=== PATIENT | female | born 1965 | race Caucasian/White ===

== ENCOUNTER 2021-03-02 09:44 | Emergency (ER) | payer OTHER, MEDICAID ==
[~2021-03-02] VITALS: Ht 152.4 cm; Wt 63.5 kg
[2021-03-02] MEDS ORDERED: cefTRIAXone SOD 1,000 MG VL IM ONE (10:45)
[2021-03-02 10:47] VITALS: BP 155/99
== END 2021-03-02 12:26 | disposition home or self-care (01) ==
LOC: ER 09:44
DX: L03.115 Cellulitis of right lower limb (principal); N76.0 Acute vaginitis; N39.0 Urinary tract infection, site not specified; K21.9 Gastro-esophageal reflux disease without esophagitis; E78.5 Hyperlipidemia, unspecified; I10 Essential (primary) hypertension; Z90.710 Acquired absence of both cervix and uterus
CPT/HCPCS: 81002; 96372; 99283; J0696

== ENCOUNTER 2021-03-10 13:12 | Inpatient (IN) | payer OTHER, MEDICAID ==
[~2021-03-10] VITALS: Ht 152.4 cm; Wt 77.1 kg
[2021-03-10 14:40] LABS: Basophils # (auto) 0.1 10 ^3/uL (0-0.2); Eosinophils # (auto) 0.1 10 ^3/uL (0-0.8); Mean Corpuscular Hemoglobin 16.9 pg (28.0-32.0)
[2021-03-10 14:42] LABS: Basophils % (auto) 0.4 % (0.0-2.0); Eosinophils % (auto) 0.3 % (0.0-7.0); Hematocrit 38.3 % (36.0-46.0); Hemoglobin 10.8 g/dL (12.2-16.2); Lymphocytes # (auto) 2.2 10 ^3/uL (0.4-5.4); Lymphocytes % (auto) 13.1 % (10.0-50.0); Mean Corpuscular Hgb Conc. 28.3 g/dL (32.0-36.0); Mean Corpuscular Volume 59.7 fL (80.0-100.0); Monocytes # (auto) 1.5 10 ^3/uL (0-1.3); Monocytes % (auto) 8.6 % (0.0-12.0); Neutrophils % (auto) 77.6 % (37.0-80.0); Platelet Count (auto) 427 10^3/uL (140-450); Red Blood Cells 6.42 10^6/uL (4.0-5.20); White Blood Cell 16.8 10^3/uL (4.4-10.8)
[2021-03-10 14:44] LABS: Red Cell Distribution Width 20.6 % (11.8-14.3)
[2021-03-10 14:56] LABS: Albumin 1.8 g/dL (3.4-5.0); BUN/Creatinine Ratio 12.2; Calcium 7.8 mg/dL (8.5-10.1); Potassium 3.2 mmol/L (3.5-5.1)
[2021-03-10 15:02] LABS: Bilirubin, Total 0.8 mg/dL (0.2-1.0); Total Protein 5.9 g/dL (6.4-8.2)
[2021-03-10] MEDS ORDERED: MORPHINE SULF INJ 2 MG/ML SYRINGE 1ML IV PRN (16:30)
[2021-03-10] MEDS ORDERED: FUROSEMIDE 40 MG/4 ML VIAL IV SCH (16:30)
[2021-03-10] MEDS ORDERED: DEXTROSE (50%) 50ML SYRG IV ONE (16:30)
[2021-03-10] MEDS ORDERED: VANCOMYCIN PER PHARMACY 0 MG IV SCH (16:30)
[2021-03-10] MEDS ORDERED: NITROGLYCERIN 0.4 MG SL TAB SL PRN (16:30)
[2021-03-10] MEDS ORDERED: HYDROcodone-ACET 10/325MG TAB PO PRN (16:45)
[2021-03-10] MEDS ORDERED: hydrALAZINE HCL 20 MG/ML VL IV PRN (16:45)
[2021-03-10] MEDS ORDERED: ACCU-CHEK COMFORT CURVE STRIP VI ONE (17:00)
[2021-03-10] MEDS ORDERED: InsuLIN REG 1unit/0.01ml Soln (100units/ml) SC ONE (17:00)
[2021-03-10] MEDS ORDERED: PIPERACILLIN-TAZOB 3.375GM 100 ML IV ONE (17:30)
[2021-03-10 17:46] LABS: INR 1.13 (0.9-1.15)
[2021-03-10] MEDS ORDERED: VANCOMYCIN 1GM/250ML 250 ML IV ONE (18:30)
[2021-03-10 18:58] VITALS: BP 170/101
[2021-03-10] MEDS ORDERED: PIPERACILLIN-TAZOB 3.375GM 100 ML IV SCH (21:00)
[2021-03-11] MEDS ORDERED: VANCOMYCIN 1GM/250ML 250 ML IV SCH (06:00)
== END 2021-03-10 20:56 | disposition left against medical advice (07) | DRG 602 ==
LOC: ER 13:12 → TELE 17:12
PROVIDERS: ADMIT Internal Medicine; ATTEND Internal Medicine
DX: L03.115 Cellulitis of right lower limb (principal); J18.9 Pneumonia, unspecified organism; E87.1 Hypo-osmolality and hyponatremia; I11.0 Hypertensive heart disease with heart failure; L03.116 Cellulitis of left lower limb; D64.9 Anemia, unspecified; I50.9 Heart failure, unspecified; Z53.29 Procedure and treatment not carried out because of patient's decision for other reasons; E78.5 Hyperlipidemia, unspecified; E87.6 Hypokalemia; Z80.9 Family history of malignant neoplasm, unspecified; Z83.3 Family history of diabetes mellitus; Z90.710 Acquired absence of both cervix and uterus
CPT/HCPCS: 36415; 71046; 76604; 80053; 83036; 83880; 84484; 85025; 85610; 85652; 87040; 96365; 96367; 96375; G0378; J2543

== ENCOUNTER 2021-03-15 05:25 | Observation (INO) | payer OTHER, MEDICAID ==
[~2021-03-15] VITALS: Ht 152.4 cm; Wt 86.3 kg
[2021-03-15] MEDS ORDERED: FUROSEMIDE 40 MG/4 ML VIAL IV ONE (06:30)
[2021-03-15 07:39] LABS: Basophils # (auto) 0.1 10 ^3/uL (0-0.2); Eosinophils # (auto) 0.1 10 ^3/uL (0-0.8); Hemoglobin 11.4 g/dL (12.2-16.2); Lymphocytes # (auto) 1.5 10 ^3/uL (0.4-5.4); Monocytes % (auto) 8.2 % (0.0-12.0)
[2021-03-15 07:42] LABS: Basophils % (auto) 0.4 % (0.0-2.0); Eosinophils % (auto) 0.9 % (0.0-7.0); Lymphocytes % (auto) 11.1 % (10.0-50.0); Mean Corpuscular Hemoglobin 17.2 pg (28.0-32.0); Mean Corpuscular Hgb Conc. 28.6 g/dL (32.0-36.0); Mean Corpuscular Volume 60.3 fL (80.0-100.0); Monocytes # (auto) 1.1 10 ^3/uL (0-1.3); Neutrophils % (auto) 79.4 % (37.0-80.0); Nucleated Red Blood Cells % 0.1 %; Red Blood Cells 6.63 10^6/uL (4.0-5.20); White Blood Cell 13.9 10^3/uL (4.4-10.8)
[2021-03-15 07:54] LABS: Red Cell Distribution Width 21.2 % (11.8-14.3)
[2021-03-15 07:56] LABS: Albumin 2.1 g/dL (3.4-5.0); BUN/Creatinine Ratio 11.6; Calcium 8.1 mg/dL (8.5-10.1)
[2021-03-15 08:01] LABS: Bilirubin, Total 0.9 mg/dL (0.2-1.0); Total Protein 6.6 g/dL (6.4-8.2)
[2021-03-15 08:14] LABS: Urine Bacteria FEW /hpf (None Seen); Urine Blood TRACE /uL (Negative); Urine WBC 4 /hpf (0 - 5)
[2021-03-15] MEDS ORDERED: cloNIDine HCL 0.1 MG TAB PO ONE (10:15)
[2021-03-15] MEDS ORDERED: InsuLIN REG 1unit/0.01ml Soln (100units/ml) IV ONE (10:45)
[2021-03-15 11:17] LABS: INR 1.14 (0.9-1.15); Partial Thromboplastin Time 24.2 sec (23.0-31.2)
[2021-03-15] MEDS ORDERED: IOHEXOL 350 MG/ML 100ML IJ ONE (13:11)
[2021-03-15] MEDS ORDERED: ACETAMINOPHEN 325 MG TAB PO PRN (13:15)
[2021-03-15] MEDS: POTASSIUM CHL 20MEQ/100ML 100 ML IV SCH ×2 (13:15→17:30)
[2021-03-15] MEDS ORDERED: LORazepam 2MG/ML-1ML VIAL IM PRN (13:15)
[2021-03-15] MEDS ORDERED: VANCOMYCIN PER PHARMACY 0 MG IV SCH (13:15)
[2021-03-15] MEDS ORDERED: DEXTROSE (50%) 50ML SYRG IV PRN (13:15)
[2021-03-15] MEDS ORDERED: NITROGLYCERIN 0.4 MG SL TAB SL PRN (13:15)
[2021-03-15] MEDS ORDERED: MORPHINE SULF INJ 2 MG/ML SYRINGE 1ML IV PRN (13:15)
[2021-03-15] MEDS ORDERED: LORazepam 0.5 MG TAB PO PRN (13:15)
[2021-03-15] MEDS ORDERED: HYDROcodone-ACET 5/325MG TAB PO PRN (13:15)
[2021-03-15] MEDS: IPRATROPIUM BROM 0.5 MG/2.5ML INH SOL NEB SCH ×3 (14:26→21:30)
[2021-03-15] MEDS: ALBUTEROL SULF 2.5 MG/0.5ML(0.5%) NEB SOLN NEB SCH ×3 (14:26→21:30)
[2021-03-15] MEDS: AMPICILLIN & SULBACTAM SODIUM 3 GM in SODIUM CHL 0.9% 100 ML IV SCH ×2 (15:13→19:15)
[2021-03-15 15:18] VITALS: BP 160/94
[2021-03-15] MEDS: VANCOMYCIN 1GM/250ML 250 ML IV SCH (16:25)
[2021-03-15] MEDS: InsuLIN REG 1unit/0.01ml Soln (100units/ml) SC SCH ×2 (17:00→21:10)
[2021-03-15] MEDS: ACCU-CHEK COMFORT CURVE STRIP VI SCH ×2 (17:39→21:19)
[2021-03-15] MEDS: FUROSEMIDE 20 MG/2 ML VIAL IV SCH (18:44)
[2021-03-15] MEDS ORDERED: ALPRAZolam 0.5 MG TAB PO PRN (19:00)
[2021-03-15 19:02] VITALS: BP 150/99
[2021-03-15 21:55] VITALS: BP 147/88
[2021-03-16] MEDS: AMPICILLIN & SULBACTAM SODIUM 3 GM in SODIUM CHL 0.9% 100 ML IV SCH ×4 (01:15→20:11)
[2021-03-16] MEDS: ALBUTEROL SULF 2.5 MG/0.5ML(0.5%) NEB SOLN NEB SCH ×2 (01:30→05:30)
[2021-03-16] MEDS: IPRATROPIUM BROM 0.5 MG/2.5ML INH SOL NEB SCH ×2 (01:30→05:30)
[2021-03-16] MEDS: VANCOMYCIN 1GM/250ML 250 ML IV SCH ×2 (02:30→17:00)
[2021-03-16] MEDS ORDERED: PNEUMOCOCCAL VACC POLYS 25 MCG/0.5 ML VIAL IM ONE (04:00)
[2021-03-16 05:28] VITALS: BP 143/100
[2021-03-16] MEDS: FUROSEMIDE 20 MG/2 ML VIAL IV SCH ×2 (06:29→17:32)
[2021-03-16] MEDS: ACCU-CHEK COMFORT CURVE STRIP VI SCH ×4 (06:29→22:18)
[2021-03-16] MEDS: InsuLIN REG 1unit/0.01ml Soln (100units/ml) SC SCH ×4 (06:30→22:23)
[2021-03-16 07:42] LABS: Basophils # (auto) 0.1 10 ^3/uL (0-0.2); Eosinophils # (auto) 0.2 10 ^3/uL (0-0.8); Mean Corpuscular Hemoglobin 17.6 pg (28.0-32.0); Mean Corpuscular Hgb Conc. 29.3 g/dL (32.0-36.0); Nucleated Red Blood Cells % 0.1 %; Red Cell Distribution Width 20.9 % (11.8-14.3)
[2021-03-16 07:44] LABS: Basophils % (auto) 0.7 % (0.0-2.0); Eosinophils % (auto) 1.8 % (0.0-7.0); Hematocrit 38.9 % (36.0-46.0); Hemoglobin 11.4 g/dL (12.2-16.2); Lymphocytes # (auto) 1.9 10 ^3/uL (0.4-5.4); Lymphocytes % (auto) 14.2 % (10.0-50.0); Mean Corpuscular Volume 60.2 fL (80.0-100.0); Monocytes % (auto) 7.6 % (0.0-12.0); Neutrophils # (auto) 10.1 10 ^3/uL (1.6-8.6); Neutrophils % (auto) 75.7 % (37.0-80.0); Red Blood Cells 6.47 10^6/uL (4.0-5.20); White Blood Cell 13.3 10^3/uL (4.4-10.8)
[2021-03-16 08:02] LABS: Albumin 1.9 g/dL (3.4-5.0); Calcium 7.7 mg/dL (8.5-10.1); Potassium 3.8 mmol/L (3.5-5.1)
[2021-03-16 08:05] LABS: BUN/Creatinine Ratio 13.9; Bilirubin, Total 0.9 mg/dL (0.2-1.0); Total Protein 6.3 g/dL (6.4-8.2)
[2021-03-16 09:00] VITALS: BP 148/96
[2021-03-16] MEDS ORDERED: POTASSIUM CHL 20 Meq TABLET PO SCH (10:00)
[2021-03-16] MEDS ORDERED: IPRATROPIUM BROM 0.5 MG/2.5ML INH SOL NEB PRN (10:00)
[2021-03-16] MEDS ORDERED: ALBUTEROL SULF 2.5 MG/0.5ML(0.5%) NEB SOLN NEB PRN (10:45)
[2021-03-16 13:00] VITALS: BP 153/99
[2021-03-16 17:00] VITALS: BP 163/105
[2021-03-16] MEDS ORDERED: guaiFENesin 200 MG/10 ML UD PO PRN (17:15)
[2021-03-16 22:00] VITALS: BP 148/90
[2021-03-17] MEDS: AMPICILLIN & SULBACTAM SODIUM 3 GM in SODIUM CHL 0.9% 100 ML IV SCH (01:50)
[2021-03-17 02:25] LABS: Basophils # (auto) 0.1 10 ^3/uL (0-0.2); Basophils % (auto) 0.7 % (0.0-2.0); Eosinophils # (auto) 0.2 10 ^3/uL (0-0.8); Eosinophils % (auto) 1.8 % (0.0-7.0); Hematocrit 37.8 % (36.0-46.0); Hemoglobin 11.2 g/dL (12.2-16.2); Lymphocytes # (auto) 1.6 10 ^3/uL (0.4-5.4); Lymphocytes % (auto) 13.6 % (10.0-50.0); Mean Corpuscular Hemoglobin 17.6 pg (28.0-32.0); Mean Corpuscular Hgb Conc. 29.7 g/dL (32.0-36.0); Mean Corpuscular Volume 59.4 fL (80.0-100.0); Monocytes # (auto) 0.9 10 ^3/uL (0-1.3); Monocytes % (auto) 7.6 % (0.0-12.0); Neutrophils % (auto) 76.3 % (37.0-80.0); Red Blood Cells 6.38 10^6/uL (4.0-5.20); White Blood Cell 11.9 10^3/uL (4.4-10.8)
[2021-03-17 02:26] LABS: Red Cell Distribution Width 20.4 % (11.8-14.3)
[2021-03-17 02:51] LABS: Albumin 1.6 g/dL (3.4-5.0); BUN/Creatinine Ratio 17.7; Calcium 7.3 mg/dL (8.5-10.1)
[2021-03-17 02:53] LABS: Bilirubin, Total 0.7 mg/dL (0.2-1.0); Total Protein 5.5 g/dL (6.4-8.2)
[2021-03-17 02:55] LABS: Potassium 2.7 mmol/L (3.5-5.1)
[2021-03-17] MEDS ORDERED: POTASSIUM CHL 20 Meq TABLET PO ONE (03:15)
[2021-03-17] MEDS: VANCOMYCIN 1GM/250ML 250 ML IV SCH (03:15)
[2021-03-17] MEDS ORDERED: POTASSIUM CHLORIDE 40 MEQ in D5W 5% 1,000 ML IV SCH (03:15)
[2021-03-17] MEDS ORDERED: POTASSIUM CHL 20MEQ/100ML 100 ML IV ONE (03:30)
[2021-03-17 05:00] VITALS: BP 152/88
[2021-03-17] MEDS: InsuLIN REG 1unit/0.01ml Soln (100units/ml) SC SCH (06:04)
[2021-03-17] MEDS: ACCU-CHEK COMFORT CURVE STRIP VI SCH (06:13)
[2021-03-17] MEDS: FUROSEMIDE 20 MG/2 ML VIAL IV SCH (06:14)
[2021-03-17] MEDS ORDERED: metOLazone 5 MG TAB PO ONE (07:45)
[2021-03-17 08:00] VITALS: BP 146/87
[2021-03-17 09:00] VITALS: BP 146/87
[2021-03-17] MEDS ORDERED: SACUBITRIL-VALSARTAN 24mg/26mg TAB PO SCH (10:00)
[2021-03-17] MEDS ORDERED: CARVEDILOL 3.125 MG TAB PO SCH (10:00)
== END 2021-03-17 08:40 | disposition left against medical advice (07) ==
LOC: ER 05:25 → TELE 13:07 → TELE-WESTW 18:30
PROVIDERS: ADMIT Hospitalist; ATTEND Hospitalist
DX: J96.01 Acute respiratory failure with hypoxia (principal); Z20.822 Contact with and (suspected) exposure to COVID-19; I11.0 Hypertensive heart disease with heart failure; I50.43 Acute on chronic combined systolic (congestive) and diastolic (congestive) heart failure; E87.6 Hypokalemia; L03.115 Cellulitis of right lower limb; F41.9 Anxiety disorder, unspecified; E11.65 Type 2 diabetes mellitus with hyperglycemia; J90 Pleural effusion, not elsewhere classified; E66.9 Obesity, unspecified; K21.9 Gastro-esophageal reflux disease without esophagitis; E78.00 Pure hypercholesterolemia, unspecified; F32.9 Major depressive disorder, single episode, unspecified; R60.1 Generalized edema; D84.9 Immunodeficiency, unspecified; E66.01 Morbid (severe) obesity due to excess calories; E78.5 Hyperlipidemia, unspecified; J45.909 Unspecified asthma, uncomplicated; J91.8 Pleural effusion in other conditions classified elsewhere; L02.415 Cutaneous abscess of right lower limb; Z90.710 Acquired absence of both cervix and uterus; Z68.37 Body mass index [BMI] 37.0-37.9, adult; Z98.891 History of uterine scar from previous surgery; Z91.14 Patient's other noncompliance with medication regimen; Z79.899 Other long term (current) drug therapy
CPT/HCPCS: 32555; 36415; 71045; 71275; 80053; 80202; 81001; 82962; 83880; 83986; 84484; 85025; 85610; 85730; 87081; 87205; 87426; 87493; 88104; 88305; 88342; 89051; 93005; 93306; 93970; 94640; 96365; 96366; 96367; 96375; 96376; 99285; G0378; J1815; J1940; J3370; J3480; J7644; Q9967

== ENCOUNTER 2021-05-30 09:05 | Emergency (ER) | payer OTHER, MEDICAID ==
[~2021-05-30] VITALS: Ht 149.9 cm; Wt 66.7 kg
[2021-05-30] MEDS ORDERED: HYDROcodone-ACET 5/325MG TAB ONE (10:32)
[2021-05-30] MEDS ORDERED: SILVER SULFADIAZINE 1 % TOPICAL CREAM 50GM TOP ONE (10:45)
[2021-05-30] MEDS ORDERED: cefTRIAXone 1GM/50ML D5W 50 ML IV ONE (10:45)
[2021-05-30] MEDS ORDERED: SODIUM CHLORIDE 0.9% 1,000 ML IV ONE (10:45)
[2021-05-30] MEDS ORDERED: SODIUM CHLORIDE 0.9% 500 ML IV ONE (10:45)
[2021-05-30 11:19] LABS: Basophils # (auto) 0.1 10 ^3/uL (0-0.2); Eosinophils # (auto) 0.1 10 ^3/uL (0-0.8); Mean Corpuscular Hgb Conc. 29.1 g/dL (32.0-36.0); Nucleated Red Blood Cells % 0.1 %
[2021-05-30 11:21] LABS: Basophils % (auto) 0.8 % (0.0-2.0); Eosinophils % (auto) 0.6 % (0.0-7.0); Hematocrit 38.3 % (36.0-46.0); Hemoglobin 11.1 g/dL (12.2-16.2); Lymphocytes # (auto) 1.6 10 ^3/uL (0.4-5.4); Lymphocytes % (auto) 9.2 % (10.0-50.0); Mean Corpuscular Hemoglobin 19.2 pg (28.0-32.0); Mean Corpuscular Volume 66.1 fL (80.0-100.0); Monocytes # (auto) 1.3 10 ^3/uL (0-1.3); Monocytes % (auto) 7.5 % (0.0-12.0); Neutrophils % (auto) 81.9 % (37.0-80.0); Red Blood Cells 5.79 10^6/uL (4.0-5.20); White Blood Cell 17.1 10^3/uL (4.4-10.8)
[2021-05-30 11:36] LABS: INR 1.02 (0.9-1.15); Partial Thromboplastin Time 23.4 sec (23.6-33.0)
[2021-05-30 11:37] LABS: Albumin 2.1 g/dL (3.4-5.0); Anion Gap 8 (5-15); Blood Urea Nitrogen 15 mg/dL (7-18); Calcium 8.9 mg/dL (8.5-10.1); Carbon Dioxide 29 mmol/L (21-32); Chloride 90 mmol/L (98-107); Magnesium 2.2 mg/dL (1.6-2.6); Potassium 4.5 mmol/L (3.5-5.1); Sodium 127 mmol/L (136-145)
[2021-05-30 11:47] LABS: Alanine Aminotransferase 15 U/L (13-56); Alkaline Phosphatase 286 U/L (45-117); Aspartate Aminotransferase 14 U/L (15-37); BUN/Creatinine Ratio 21.7; Bilirubin, Total 0.4 mg/dL (0.2-1.0); GFR African American 113 mL/min; GFR Non-African American 93 mL/min; Total Protein 7.4 g/dL (6.4-8.2)
[2021-05-30 11:50] LABS: Glucose 407 mg/dL (74-106)
[2021-05-30 14:01] LABS: Urine Bacteria NONE SEEN /hpf (None Seen); Urine Blood Negative /uL (Negative); Urine Specific Gravity 1.038 (1.001-1.035); Urine WBC 22 /hpf (0 - 5)
[2021-05-30 15:26] VITALS: BP 159/60
[2021-05-30] MEDS ORDERED: SPIRONOLACTONE 25 MG TAB PO ONE (15:45)
[2021-05-30] MEDS ORDERED: InsuLIN REG 1unit/0.01ml Soln (100units/ml) IV ONE ×2 (15:45→17:30)
[2021-05-30] MEDS ORDERED: FUROSEMIDE 40 MG/4 ML VIAL IV ONE (15:45)
[2021-05-30] MEDS ORDERED: cefTRIAXone SOD 1,000 MG VL IM ONE (17:30)
[2021-05-30] MEDS ORDERED: HYDROcodone-ACET 5/325MG TAB PO ONE (17:30)
[2021-05-30] MEDS ORDERED: InsuLIN REG 1unit/0.01ml Soln (100units/ml) SC ONE (17:45)
== END 2021-05-30 18:38 | disposition home or self-care (01) ==
LOC: EDBD 09:05 → ER 09:05
DX: L03.115 Cellulitis of right lower limb (principal); L03.116 Cellulitis of left lower limb; N39.0 Urinary tract infection, site not specified; I87.2 Venous insufficiency (chronic) (peripheral); I11.0 Hypertensive heart disease with heart failure; I50.9 Heart failure, unspecified; E11.65 Type 2 diabetes mellitus with hyperglycemia; E43 Unspecified severe protein-calorie malnutrition; Z68.29 Body mass index [BMI] 29.0-29.9, adult; R60.9 Edema, unspecified; K21.9 Gastro-esophageal reflux disease without esophagitis; E78.5 Hyperlipidemia, unspecified; Z90.710 Acquired absence of both cervix and uterus; Z20.822 Contact with and (suspected) exposure to COVID-19
CPT/HCPCS: 36415; 71046; 80053; 81001; 82962; 83735; 83880; 84484; 85025; 85379; 85610; 85730; 87426; 93005; 93970; 96372; 99285; J0696; J1815

== ENCOUNTER 2021-06-02 22:11 | Emergency (ER) | payer OTHER, MEDICAID ==
[~2021-06-02] VITALS: Ht 149.9 cm; Wt 68.0 kg
[2021-06-03] MEDS ORDERED: ONDANSETRON HCL 4 MG/2 ML VIAL IV ONE (00:30)
[2021-06-03] MEDS ORDERED: MORPHINE SULFATE 4 MG/ML SYR/VIAL IV ONE (00:30)
[2021-06-03 00:43] LABS: Albumin 1.9 g/dL (3.4-5.0); Anion Gap 7 (5-15); Blood Urea Nitrogen 12 mg/dL (7-18); Calcium 8.7 mg/dL (8.5-10.1); Carbon Dioxide 31 mmol/L (21-32); Chloride 89 mmol/L (98-107); Magnesium 1.7 mg/dL (1.6-2.6); Sodium 127 mmol/L (136-145)
[2021-06-03] MEDS ORDERED: cefTRIAXone 1GM/50ML D5W 50 ML IV ONE (00:45)
[2021-06-03] MEDS ORDERED: VANCOMYCIN 1GM/250ML 250 ML IV ONE (00:45)
[2021-06-03 00:46] LABS: Alanine Aminotransferase 16 U/L (13-56); Aspartate Aminotransferase 11 U/L (15-37); BUN/Creatinine Ratio 16.4; GFR African American 106 mL/min; GFR Non-African American 87 mL/min
[2021-06-03 00:47] LABS: Lactic Acid w/Reflex 2.2 mmol/L (0.4-2.0)
[2021-06-03 00:50] LABS: Urine Bacteria NONE SEEN /hpf (None Seen); Urine Blood Negative /uL (Negative); Urine Specific Gravity 1.035 (1.001-1.035); Urine WBC 5 /hpf (0 - 5)
[2021-06-03 01:08] LABS: Basophils # (auto) 0.1 10 ^3/uL (0-0.2); Basophils % (auto) 0.5 % (0.0-2.0); Eosinophils # (auto) 0.1 10 ^3/uL (0-0.8); Eosinophils % (auto) 0.8 % (0.0-7.0); Glucose 459 mg/dL (74-106); Hematocrit 36.4 % (36.0-46.0); Lymphocytes # (auto) 2.1 10 ^3/uL (0.4-5.4); Lymphocytes % (auto) 14.8 % (10.0-50.0); Mean Corpuscular Hemoglobin 19.7 pg (28.0-32.0); Mean Corpuscular Hgb Conc. 30.1 g/dL (32.0-36.0); Mean Corpuscular Volume 65.4 fL (80.0-100.0); Monocytes # (auto) 1.2 10 ^3/uL (0-1.3); Monocytes % (auto) 8.4 % (0.0-12.0); Neutrophils # (auto) 10.7 10 ^3/uL (1.6-8.6); Neutrophils % (auto) 75.5 % (37.0-80.0); Nucleated Red Blood Cells % 0.2 %; Red Blood Cells 5.56 10^6/uL (4.0-5.20); Red Cell Distribution Width 21.9 % (11.8-14.3); White Blood Cell 14.1 10^3/uL (4.4-10.8)
[2021-06-03 01:22] LABS: Alkaline Phosphatase 227 U/L (45-117); Bilirubin, Total 0.3 mg/dL (0.2-1.0); Total Protein 6.9 g/dL (6.4-8.2)
[2021-06-03] MEDS ORDERED: SODIUM CHLORIDE 0.9% 500 ML IV ONE (02:30)
[2021-06-03] MEDS ORDERED: SODIUM CHLORIDE 0.9% 1,000 ML IV ONE (02:30)
[2021-06-03] MEDS ORDERED: metFORMIN HYDROCHLORIDE 500 MG TAB PO ONE (02:30)
[2021-06-03] MEDS ORDERED: BUPR150T18 PO (03:25)
[2021-06-03] MEDS ORDERED: CEFD300C2 PO (03:25)
[2021-06-03] MEDS ORDERED: CLON0.5T10 PO (03:25)
[2021-06-03] MEDS ORDERED: SPIR25TA8 PO (03:25)
[2021-06-03] MEDS ORDERED: GLIM-5 PO (03:25)
[2021-06-03 06:52] VITALS: BP 122/102
[2021-06-03] MEDS ORDERED: MORPHINE SULFATE INJECTION 2 MG/ML SYRG IV PRN (07:15)
[2021-06-03] MEDS ORDERED: ONDANSETRON HCL 4 MG/2 ML VIAL IV PRN (07:15)
[2021-06-03] MEDS ORDERED: HYDROcodone-ACET 5/325MG TAB PO PRN (07:15)
[2021-06-03] MEDS ORDERED: VANCOMYCIN PER PHARMACY 0 MG IV SCH (07:15)
[2021-06-03] MEDS ORDERED: NITROGLYCERIN 0.4 MG SL TAB SL PRN (07:15)
[2021-06-03] MEDS ORDERED: DEXTROSE (50%) 50ML SYRG IV PRN (07:15)
[2021-06-03] MEDS ORDERED: LISINOPRIL 5 MG TAB PO SCH (10:00)
[2021-06-03] MEDS ORDERED: ENOXAPARIN SOD 40 MG/0.4 ML SYRINGE SC SCH (10:00)
[2021-06-03] MEDS ORDERED: INSULIN LANTUS (GLARGINE) 1 /0.01ml (100units/ml) SC SCH (10:00)
[2021-06-03] MEDS ORDERED: InsuLIN REG 1unit/0.01ml Soln (100units/ml) SC SCH ×2 (11:30→22:00)
[2021-06-03] MEDS ORDERED: ACCU-CHEK COMFORT CURVE STRIP VI SCH (11:30)
[2021-06-03] MEDS ORDERED: PIPERACILLIN-TAZOB 3.375GM 100 ML IV SCH (12:00)
[2021-06-03] MEDS ORDERED: VANCOMYCIN 1GM/250ML 250 ML IV SCH (17:00)
== END 2021-06-03 07:52 | disposition left against medical advice (07) ==
LOC: EDBD 22:11 → ER 22:13 → UNDOADMIN 06-03 07:05 → TELE 06-03 07:05 → UNDODISIN 06-03 07:52
DX: L03.115 Cellulitis of right lower limb (principal); L97.919 Non-pressure chronic ulcer of unspecified part of right lower leg with unspecified severity; L97.929 Non-pressure chronic ulcer of unspecified part of left lower leg with unspecified severity; L03.116 Cellulitis of left lower limb; K21.9 Gastro-esophageal reflux disease without esophagitis; I11.0 Hypertensive heart disease with heart failure; I50.9 Heart failure, unspecified; E11.65 Type 2 diabetes mellitus with hyperglycemia; E78.5 Hyperlipidemia, unspecified; Z20.822 Contact with and (suspected) exposure to COVID-19; Z90.710 Acquired absence of both cervix and uterus; Z79.899 Other long term (current) drug therapy
CPT/HCPCS: 36415; 71045; 73590; 73700; 80053; 81001; 82010; 83605; 83735; 83880; 84484; 85025; 85652; 86141; 87040; 87077; 87186; 87205; 87426; 93925; 96365; 96366; 96368; 96375; 99285; J0696; J2270; J2405; J3370; J7030; 93005; 96367; G0378

== ENCOUNTER 2022-12-25 14:19 | Inpatient (IN) | payer OTHER, MEDICAID ==
[~2022-12-25] VITALS: Ht 160 cm; Wt 76.1 kg
[~2022-12-25 14:19] MED LIST: BUPR150T18 PO; CEFD300C2 PO; CLON0.5T10 PO; GLIM-5 PO; SPIR25TA8 PO
[2022-12-25 15:57] LABS: Basophils # (auto) 0.1 10 ^3/uL (0-0.2); Eosinophils # (auto) 0.2 10 ^3/uL (0-0.8); Hemoglobin 7.4 g/dL (12.2-16.2); Monocytes # (auto) 0.9 10 ^3/uL (0-1.3); Nucleated Red Blood Cells % 0.1 %
[2022-12-25 15:59] LABS: Hematocrit 25.7 % (36.0-46.0); Lymphocytes # (auto) 1.3 10 ^3/uL (0.4-5.4); Lymphocytes % (auto) 15.1 % (10.0-50.0); Mean Corpuscular Hemoglobin 18.5 pg (28.0-32.0); Mean Corpuscular Hgb Conc. 28.9 g/dL (32.0-36.0); Monocytes % (auto) 10.2 % (0.0-12.0); Neutrophils # (auto) 6.2 10 ^3/uL (1.6-8.6); Neutrophils % (auto) 71.7 % (37.0-80.0); Red Blood Cells 4.01 10^6/uL (4.0-5.20); Red Cell Distribution Width 17.7 % (11.8-14.3); White Blood Cell 8.6 10^3/uL (4.4-10.8)
[2022-12-25 16:06] LABS: Albumin 2.7 g/dL (3.4-5.0); BUN/Creatinine Ratio 15.9; Calcium 8.5 mg/dL (8.5-10.1); Potassium 4.1 mmol/L (3.5-5.1)
[2022-12-25 16:08] LABS: Lactic Acid w/Reflex 2.3 mmol/L (0.4-2.0)
[2022-12-25 16:09] LABS: Bilirubin, Total 0.2 mg/dL (0.2-1.0); Total Protein 6.9 g/dL (6.4-8.2)
[2022-12-25] MEDS ORDERED: MORPHINE SULFATE INJ 2 MG/ml SYRG IV ONE (16:30)
[2022-12-25] MEDS ORDERED: ONDANSETRON HCL 4 MG/2 ML VIAL IM ONE (16:30)
[2022-12-25] MEDS ORDERED: VANCOMYCIN PER PHARMACY 0 MG IV SCH (16:30)
[2022-12-25] MEDS ORDERED: VANCOMYCIN 1GM/250ML 250 ML IV ONE (17:15)
[2022-12-25] MEDS ORDERED: DEXTROSE (50%) 50ML SYRG IV PRN (22:30)
[2022-12-25] MEDS ORDERED: ACETAMINOPHEN 325 MG TAB PO PRN (22:30)
[2022-12-25] MEDS ORDERED: NITROGLYCERIN 0.4 MG SL TAB SL PRN (22:30)
[2022-12-25] MEDS ORDERED: DOCUSATE SOD 100 MG CAP PO PRN (22:30)
[2022-12-25] MEDS: HYDROmorphone HCL 2 MG/ML VL/or syr IV PRN (22:55)
[2022-12-25] MEDS: SODIUM CHLORIDE 0.9% 1,000 ML IV SCH (23:00)
[2022-12-25] MEDS: PIPERACILLIN-TAZOB 3.375GM 100 ML IV SCH (23:07)
[2022-12-25] MEDS: ACCU-CHEK COMFORT CURVE STRIP VI SCH (23:54)
[2022-12-25] MEDS: InsuLIN REG 1unit/0.01ml Soln (100units/ml) SC SCH (23:54)
[2022-12-26] MEDS: PIPERACILLIN-TAZOB 3.375GM 100 ML IV SCH ×3 (03:53→23:31)
[2022-12-26] MEDS: HYDROmorphone HCL 2 MG/ML VL/or syr IV PRN ×3 (03:54→17:33)
[2022-12-26 06:11] LABS: Basophils # (auto) 0.1 10 ^3/uL (0-0.2); Eosinophils # (auto) 0.2 10 ^3/uL (0-0.8); Hemoglobin 7.5 g/dL (12.2-16.2); Lymphocytes # (auto) 1.4 10 ^3/uL (0.4-5.4); Monocytes # (auto) 1.2 10 ^3/uL (0-1.3)
[2022-12-26 06:13] LABS: Basophils % (auto) 0.7 % (0.0-2.0); Eosinophils % (auto) 1.9 % (0.0-7.0); Hematocrit 27.2 % (36.0-46.0); Mean Corpuscular Hemoglobin 18.2 pg (28.0-32.0); Mean Corpuscular Hgb Conc. 27.8 g/dL (32.0-36.0); Mean Corpuscular Volume 65.4 fL (80.0-100.0); Monocytes % (auto) 10.5 % (0.0-12.0); Neutrophils # (auto) 8.6 10 ^3/uL (1.6-8.6); Neutrophils % (auto) 74.9 % (37.0-80.0); Nucleated Red Blood Cells % 0.2 %; Red Blood Cells 4.15 10^6/uL (4.0-5.20); Red Cell Distribution Width 17.2 % (11.8-14.3); White Blood Cell 11.5 10^3/uL (4.4-10.8)
[2022-12-26 06:17] LABS: Albumin 2.7 g/dL (3.4-5.0); Calcium 8.6 mg/dL (8.5-10.1); Potassium 4.6 mmol/L (3.5-5.1)
[2022-12-26 06:20] LABS: Bilirubin, Total 0.4 mg/dL (0.2-1.0)
[2022-12-26] MEDS: InsuLIN REG 1unit/0.01ml Soln (100units/ml) SC SCH ×4 (06:23→23:40)
[2022-12-26] MEDS: ACCU-CHEK COMFORT CURVE STRIP VI SCH ×4 (06:23→23:32)
[2022-12-26 07:16] LABS: Urine WBC None Seen /hpf (0 - 5)
[2022-12-26 08:33] LABS: Urine Bacteria NONE SEEN /hpf (None Seen); Urine Blood 1+ /uL (Negative); Urine Hyaline Cast FEW /lpf (0 - 2); Urine Specific Gravity 1.022 (1.001-1.035)
[2022-12-26] MEDS: ENOXAPARIN SOD 40 MG/0.4 ML SYRINGE SC SCH (10:48)
[2022-12-26] MEDS: FAMOTIDINE (10MG/ML) 2ML VL IV SCH (10:48)
[2022-12-26] MEDS: ONDANSETRON HCL 4 MG/2 ML VIAL IV PRN ×3 (10:50→23:52)
[2022-12-26] MEDS: VANCOMYCIN 1GM/250ML 250 ML IV SCH (11:41)
[2022-12-26] MEDS ORDERED: ALPRAZolam 0.25 MG TAB PO PRN (11:45)
[2022-12-26 15:05] VITALS: BP 117/43
[2022-12-26] MEDS ORDERED: GABA300C10 PO (16:40)
[2022-12-26 17:05] VITALS: BP 125/61
[2022-12-26] MEDS: SODIUM CHLORIDE 0.9% 1,000 ML IV SCH (17:44)
[2022-12-26 20:00] VITALS: BP 123/47
[2022-12-26 22:00] VITALS: BP 123/47
[2022-12-26] MEDS: HYDROcodone-ACET 5/325MG TAB PO PRN (23:14)
[2022-12-27] MEDS: HYDROmorphone HCL 2 MG/ML VL/or syr IV PRN (02:58)
[2022-12-27] MEDS: VANCOMYCIN 1GM/250ML 250 ML IV SCH (04:52)
[2022-12-27 05:00] VITALS: BP 111/53
[2022-12-27] MEDS: ACCU-CHEK COMFORT CURVE STRIP VI SCH ×3 (05:32→18:10)
[2022-12-27] MEDS: InsuLIN REG 1unit/0.01ml Soln (100units/ml) SC SCH ×4 (05:34→22:26)
[2022-12-27] MEDS: PIPERACILLIN-TAZOB 3.375GM 100 ML IV SCH ×3 (05:37→18:23)
[2022-12-27] MEDS ORDERED: PANT1INJ3 IV (06:59)
[2022-12-27] MEDS ORDERED: ESCI-34 PO (06:59)
[2022-12-27 07:42] LABS: Basophils # (auto) 0.1 10 ^3/uL (0-0.2); Lymphocytes # (auto) 1.6 10 ^3/uL (0.4-5.4); Monocytes # (auto) 1.3 10 ^3/uL (0-1.3)
[2022-12-27 07:44] LABS: Basophils % (auto) 0.8 % (0.0-2.0); Eosinophils # (auto) 0.1 10 ^3/uL (0-0.8); Eosinophils % (auto) 0.5 % (0.0-7.0); Hemoglobin 7.2 g/dL (12.2-16.2); Mean Corpuscular Hemoglobin 18.6 pg (28.0-32.0); Mean Corpuscular Hgb Conc. 28.8 g/dL (32.0-36.0); Mean Corpuscular Volume 64.8 fL (80.0-100.0); Monocytes % (auto) 11.8 % (0.0-12.0); Neutrophils # (auto) 8.3 10 ^3/uL (1.6-8.6); Neutrophils % (auto) 72.9 % (37.0-80.0); Nucleated Red Blood Cells % 0.2 %; Red Blood Cells 3.87 10^6/uL (4.0-5.20); Red Cell Distribution Width 17.5 % (11.8-14.3); White Blood Cell 11.3 10^3/uL (4.4-10.8)
[2022-12-27] MEDS: SODIUM CHLORIDE 0.9% 1,000 ML IV SCH (07:50)
[2022-12-27 08:50] VITALS: BP 141/46
[2022-12-27 09:00] LABS: Calcium 8.6 mg/dL (8.5-10.1); Potassium 4.9 mmol/L (3.5-5.1)
[2022-12-27 09:03] LABS: BUN/Creatinine Ratio 13.7
[2022-12-27] MEDS: FAMOTIDINE (10MG/ML) 2ML VL IV SCH (10:00)
[2022-12-27] MEDS: ENOXAPARIN SOD 40 MG/0.4 ML SYRINGE SC SCH (10:00)
[2022-12-27 12:56] LABS: Magnesium 2.1 mg/dL (1.6-2.6)
[2022-12-27 13:00] VITALS: BP 161/62
[2022-12-27 13:21] LABS: % Iron Saturation 3.2 % (15-50)
[2022-12-27] MEDS: ONDANSETRON HCL 4 MG/2 ML VIAL IV PRN (14:36)
[2022-12-27] MEDS: HYDROcodone-ACET 5/325MG TAB PO PRN ×2 (14:58→21:51)
[2022-12-27 17:06] VITALS: BP 171/54
[2022-12-28] MEDS: ACCU-CHEK COMFORT CURVE STRIP VI SCH ×5 (00:25→23:28)
[2022-12-28] MEDS: PIPERACILLIN-TAZOB 3.375GM 100 ML IV SCH ×4 (00:28→07:11)
[2022-12-28 02:13] VITALS: BP 150/76
[2022-12-28] MEDS: HYDROcodone-ACET 5/325MG TAB PO PRN ×4 (03:29→23:41)
[2022-12-28 05:24] LABS: Basophils # (auto) 0.1 10 ^3/uL (0-0.2); Eosinophils # (auto) 0.3 10 ^3/uL (0-0.8); Hemoglobin 7.2 g/dL (12.2-16.2); Mean Corpuscular Hemoglobin 18.3 pg (28.0-32.0); Mean Corpuscular Volume 62.8 fL (80.0-100.0); Monocytes # (auto) 1.3 10 ^3/uL (0-1.3); Nucleated Red Blood Cells % 0.1 %
[2022-12-28 05:26] LABS: Basophils % (auto) 0.9 % (0.0-2.0); Eosinophils % (auto) 2.3 % (0.0-7.0); Hematocrit 24.7 % (36.0-46.0); Lymphocytes % (auto) 17.1 % (10.0-50.0); Mean Corpuscular Hgb Conc. 29.1 g/dL (32.0-36.0); Monocytes % (auto) 10.8 % (0.0-12.0); Neutrophils # (auto) 8.2 10 ^3/uL (1.6-8.6); Neutrophils % (auto) 68.9 % (37.0-80.0); Red Blood Cells 3.93 10^6/uL (4.0-5.20); Red Cell Distribution Width 17.5 % (11.8-14.3); White Blood Cell 11.9 10^3/uL (4.4-10.8)
[2022-12-28 05:29] VITALS: BP 105/45
[2022-12-28] MEDS: InsuLIN REG 1unit/0.01ml Soln (100units/ml) SC SCH ×4 (05:34→23:29)
[2022-12-28 05:49] LABS: BUN/Creatinine Ratio 12.7 (10.0-20.0); Calcium 8.7 mg/dL (8.5-10.1); Potassium 4.4 mmol/L (3.5-5.1)
[2022-12-28 08:29] VITALS: BP 151/74
[2022-12-28] MEDS: ENOXAPARIN SOD 40 MG/0.4 ML SYRINGE SC SCH (10:44)
[2022-12-28] MEDS: FAMOTIDINE (10MG/ML) 2ML VL IV SCH (12:17)
[2022-12-28 13:00] VITALS: BP 146/82
[2022-12-28] MEDS ORDERED: PIPERACILLIN-TAZOB 3.375GM 100 ML IV SCH (14:00)
[2022-12-28 16:09] LABS: INR 1.1 (0.9-1.15); Partial Thromboplastin Time 27.1 sec (24.6-33.4)
[2022-12-28] MEDS: HYDROmorphone HCL 2 MG/ML VL/or syr IV PRN (17:51)
[2022-12-28] MEDS: FERROUS SULFATE 325mg EC TAB PO SCH (18:51)
[2022-12-28 22:00] VITALS: BP 123/58
[2022-12-29] VITALS (7 sets, daily range): BP systolic 126–161; BP diastolic 53–77
[2022-12-29] MEDS: HYDROmorphone HCL 2 MG/ML VL/or syr IV PRN (00:40)
[2022-12-29 00:56] LABS: Urine Bacteria FEW /hpf (None Seen); Urine Blood Negative /uL (Negative); Urine WBC 4 /hpf (0 - 5)
[2022-12-29 01:04] LABS: Protein, Urine 27.3 mg/dL (0.0-11.9)
[2022-12-29] MEDS: HYDROcodone-ACET 5/325MG TAB PO PRN ×3 (04:42→21:05)
[2022-12-29] MEDS: ACCU-CHEK COMFORT CURVE STRIP VI SCH ×4 (05:05→23:34)
[2022-12-29] MEDS: InsuLIN REG 1unit/0.01ml Soln (100units/ml) SC SCH ×4 (05:08→23:34)
[2022-12-29] MEDS: ONDANSETRON HCL 4 MG/2 ML VIAL IV PRN ×3 (06:04→23:50)
[2022-12-29 07:06] LABS: Calcium 8.6 mg/dL (8.5-10.1); Potassium 5.1 mmol/L (3.5-5.1)
[2022-12-29 07:09] LABS: BUN/Creatinine Ratio 15.2 (10.0-20.0)
[2022-12-29] MEDS: FERROUS SULFATE 325mg EC TAB PO SCH ×3 (08:34→18:05)
[2022-12-29] MEDS: cefTRIAXone 1GM/50ML D5W 50 ML IV SCH (08:35)
[2022-12-29] MEDS: FAMOTIDINE (10MG/ML) 2ML VL IV SCH (09:56)
[2022-12-29] MEDS: ENOXAPARIN SOD 30 MG/0.3 ML SYRINGE SC SCH (10:00)
[2022-12-29] MEDS ORDERED: LACTATED RINGER'S 1,000 ML IV ONE (18:45)
[2022-12-30] MEDS: HYDROcodone-ACET 5/325MG TAB PO PRN ×2 (01:21→20:31)
[2022-12-30 05:00] VITALS: BP 161/88
[2022-12-30] MEDS: HYDROmorphone HCL 2 MG/ML VL/or syr IV PRN ×3 (05:06→15:12)
[2022-12-30] MEDS: InsuLIN REG 1unit/0.01ml Soln (100units/ml) SC SCH ×3 (06:00→18:00)
[2022-12-30] MEDS: ACCU-CHEK COMFORT CURVE STRIP VI SCH ×3 (06:11→17:40)
[2022-12-30 08:00] VITALS: BP 161/67
[2022-12-30 09:10] VITALS: BP 161/67
[2022-12-30] MEDS ORDERED: FAMOTIDINE (10MG/ML) 2ML VL IV SCH (10:00)
[2022-12-30] MEDS: FERROUS SULFATE 325mg EC TAB PO SCH ×3 (10:05→17:40)
[2022-12-30] MEDS: ENOXAPARIN SOD 30 MG/0.3 ML SYRINGE SC SCH (10:06)
[2022-12-30] MEDS: cefTRIAXone 1GM/50ML D5W 50 ML IV SCH (10:06)
[2022-12-30] MEDS: ONDANSETRON HCL 4 MG/2 ML VIAL IV PRN ×2 (10:07→15:09)
[2022-12-30 11:20] LABS: BUN/Creatinine Ratio 19.4 (10.0-20.0); Potassium 4.3 mmol/L (3.5-5.1)
[2022-12-30 11:58] LABS: Basophils # (auto) 0.1 10 ^3/uL (0-0.2); Basophils % (auto) 1.3 % (0.0-2.0); Eosinophils # (auto) 0.3 10 ^3/uL (0-0.8); Eosinophils % (auto) 3.1 % (0.0-7.0); Hematocrit 26.6 % (36.0-46.0); Hemoglobin 7.5 g/dL (12.2-16.2); Lymphocytes # (auto) 1.2 10 ^3/uL (0.4-5.4); Lymphocytes % (auto) 10.6 % (10.0-50.0); Mean Corpuscular Hemoglobin 18.1 pg (28.0-32.0); Mean Corpuscular Hgb Conc. 28.3 g/dL (32.0-36.0); Mean Corpuscular Volume 63.9 fL (80.0-100.0); Monocytes # (auto) 1.3 10 ^3/uL (0-1.3); Monocytes % (auto) 11.3 % (0.0-12.0); Neutrophils # (auto) 8.3 10 ^3/uL (1.6-8.6); Neutrophils % (auto) 73.7 % (37.0-80.0); Nucleated Red Blood Cells % 0.2 %; Red Blood Cells 4.17 10^6/uL (4.0-5.20); Red Cell Distribution Width 17.5 % (11.8-14.3); White Blood Cell 11.3 10^3/uL (4.4-10.8)
[2022-12-30 12:53] VITALS: BP 145/55
[2022-12-30] MEDS ORDERED: levoFLOXacin 500 MG TAB PO ONE (13:45)
[2022-12-30 16:53] VITALS: BP 161/76
[2022-12-30] MEDS: CEPHALEXIN 250 MG CAP PO SCH (21:03)
[2022-12-30 22:00] VITALS: BP 145/78
[2022-12-31] MEDS: InsuLIN REG 1unit/0.01ml Soln (100units/ml) SC SCH ×3 (00:11→11:45)
[2022-12-31] MEDS: ACCU-CHEK COMFORT CURVE STRIP VI SCH ×3 (00:19→11:40)
[2022-12-31] MEDS: ONDANSETRON HCL 4 MG/2 ML VIAL IV PRN ×2 (00:23→09:33)
[2022-12-31] MEDS: HYDROmorphone HCL 2 MG/ML VL/or syr IV PRN ×2 (00:23→09:33)
[2022-12-31 05:00] VITALS: BP 145/52
[2022-12-31 06:21] LABS: Basophils # (auto) 0.1 10 ^3/uL (0-0.2); Basophils % (auto) 0.8 % (0.0-2.0); Eosinophils # (auto) 0.4 10 ^3/uL (0-0.8); Monocytes # (auto) 1.3 10 ^3/uL (0-1.3)
[2022-12-31 06:23] LABS: Eosinophils % (auto) 3.3 % (0.0-7.0); Lymphocytes # (auto) 1.1 10 ^3/uL (0.4-5.4); Lymphocytes % (auto) 9.3 % (10.0-50.0); Mean Corpuscular Hemoglobin 18.2 pg (28.0-32.0); Mean Corpuscular Hgb Conc. 29.2 g/dL (32.0-36.0); Mean Corpuscular Volume 62.4 fL (80.0-100.0); Neutrophils # (auto) 8.9 10 ^3/uL (1.6-8.6); Neutrophils % (auto) 75.6 % (37.0-80.0); Nucleated Red Blood Cells % 0.2 %; Red Blood Cells 3.85 10^6/uL (4.0-5.20); Red Cell Distribution Width 17.5 % (11.8-14.3); White Blood Cell 11.7 10^3/uL (4.4-10.8)
[2022-12-31 06:38] LABS: Potassium 4.2 mmol/L (3.5-5.1)
[2022-12-31 06:42] LABS: BUN/Creatinine Ratio 16.5 (10.0-20.0); Calcium 9.1 mg/dL (8.5-10.1)
[2022-12-31 09:00] VITALS: BP 162/81
[2022-12-31] MEDS: FERROUS SULFATE 325mg EC TAB PO SCH ×2 (09:28→11:50)
[2022-12-31] MEDS: CEPHALEXIN 250 MG CAP PO SCH (09:29)
[2022-12-31] MEDS: ENOXAPARIN SOD 30 MG/0.3 ML SYRINGE SC SCH (09:32)
[2022-12-31] MEDS ORDERED: levoFLOXacin 250 MG TAB PO SCH (10:00)
[2022-12-31 10:03] VITALS: BP 150/77
[2022-12-31] MEDS ORDERED: CEPH-510 PO (11:47)
[2022-12-31] MEDS ORDERED: LEVO-28 PO (11:47)
[2022-12-31] MEDS ORDERED: HYDR-4798 PO (12:18)
== END 2022-12-31 15:45 | disposition home health service (06) | DRG 602 ==
LOC: EDBD 14:19 → ER 14:19 → OVERFLOW 22:27 → WEST WING 12-26 13:46
PROVIDERS: ADMIT Nurse Practitioner Family; ATTEND Internal Medicine
DX: L03.115 Cellulitis of right lower limb (principal); N17.0 Acute kidney failure with tubular necrosis; E87.1 Hypo-osmolality and hyponatremia; L97.929 Non-pressure chronic ulcer of unspecified part of left lower leg with unspecified severity; L97.919 Non-pressure chronic ulcer of unspecified part of right lower leg with unspecified severity; R65.10 Systemic inflammatory response syndrome (SIRS) of non-infectious origin without acute organ dysfunction; L03.116 Cellulitis of left lower limb; I73.9 Peripheral vascular disease, unspecified; E11.65 Type 2 diabetes mellitus with hyperglycemia; E11.69 Type 2 diabetes mellitus with other specified complication; Z20.822 Contact with and (suspected) exposure to COVID-19; D50.9 Iron deficiency anemia, unspecified; E78.5 Hyperlipidemia, unspecified; K21.9 Gastro-esophageal reflux disease without esophagitis; E11.51 Type 2 diabetes mellitus with diabetic peripheral angiopathy without gangrene; E66.9 Obesity, unspecified; Z68.30 Body mass index [BMI] 30.0-30.9, adult; F32.A Depression, unspecified; F41.9 Anxiety disorder, unspecified; I11.0 Hypertensive heart disease with heart failure; I50.9 Heart failure, unspecified; Z80.0 Family history of malignant neoplasm of digestive organs; Z82.49 Family history of ischemic heart disease and other diseases of the circulatory system; Z83.3 Family history of diabetes mellitus; Z90.710 Acquired absence of both cervix and uterus; E11.622 Type 2 diabetes mellitus with other skin ulcer; Z79.84 Long term (current) use of oral hypoglycemic drugs
CPT/HCPCS: 36415; 71045; 73590; 76775; 78315; 80048; 80053; 80061; 80202; 81001; 82270; 82570; 82962; 83036; 83540; 83550; 83605; 83735; 83880; 84156; 84300; 84443; 84484; 85025; 85610; 85730; 87040; 87077; 87186; 87205; 87426; 93306; 93925; 96365; 96366; 96372; 96375; 97110; 97116; 97163; 97530; A4565; G0378; J0696; J1815; J2405; J2543; J3490

== ENCOUNTER 2023-02-18 15:51 | Inpatient (IN) | payer OTHER, MEDICAID ==
[~2023-02-18] VITALS: Ht 149.9 cm; Wt 74.6 kg
[~2023-02-18 15:51] MED LIST changes: -CEFD300C2 PO; +CEPH-510 PO; +ESCI-34 PO; +GABA300C10 PO; +HYDR-4798 PO; +LEVO-28 PO; +PANT1INJ3 IV
[2023-02-18] MEDS ORDERED: CLINDAMYCIN 600MG IV 50 ML IV ONE (16:15)
[2023-02-18 16:40] LABS: Basophils # (auto) 0.1 10 ^3/uL (0-0.2); Eosinophils # (auto) 0.2 10 ^3/uL (0-0.8); Hemoglobin 8.2 g/dL (12.2-16.2); Lymphocytes # (auto) 1.2 10 ^3/uL (0.4-5.4); Monocytes # (auto) 0.8 10 ^3/uL (0-1.3); Neutrophils # (auto) 7.7 10 ^3/uL (1.6-8.6)
[2023-02-18 16:41] LABS: Basophils % (auto) 1.4 % (0.0-2.0); Eosinophils % (auto) 1.9 % (0.0-7.0); Hematocrit 28.8 % (36.0-46.0); Mean Corpuscular Hemoglobin 17.5 pg (28.0-32.0); Mean Corpuscular Hgb Conc. 28.6 g/dL (32.0-36.0); Mean Corpuscular Volume 61.2 fL (80.0-100.0); Monocytes % (auto) 8.3 % (0.0-12.0); Neutrophils % (auto) 76.4 % (37.0-80.0); Red Cell Distribution Width 18.2 % (11.8-14.3); White Blood Cell 10.1 10^3/uL (4.4-10.8)
[2023-02-18 16:57] LABS: Potassium 5.1 mmol/L (3.5-5.1)
[2023-02-18 17:05] LABS: Albumin 3.5 g/dL (3.4-5.0); BUN/Creatinine Ratio 22.2 (10.0-20.0); Bilirubin, Total 0.4 mg/dL (0.2-1.0); Calcium 8.9 mg/dL (8.5-10.1); Total Protein 7.5 g/dL (6.4-8.2)
[2023-02-18] MEDS ORDERED: CLINDAMYCIN 900MG IV 50 ML IV ONE (17:15)
[2023-02-18] MEDS ORDERED: ONDANSETRON HCL 4 MG/2 ML VIAL IV ONE (18:00)
[2023-02-18] MEDS ORDERED: HYDROmorphone HCL 2 MG/ML VL/or syr IV ONE (18:00)
[2023-02-18] MEDS ORDERED: DEXTROSE (50%) 50ML SYRG IV PRN (21:00)
[2023-02-18] MEDS ORDERED: hydrALAZINE HCL 20 MG/ML VL IV PRN (21:00)
[2023-02-18] MEDS ORDERED: ACETAMINOPHEN 325 MG TAB PO PRN (21:00)
[2023-02-18] MEDS ORDERED: DOCUSATE SOD 100 MG CAP PO PRN (21:00)
[2023-02-18] MEDS: CLINDAMYCIN 600MG IV 50 ML IV SCH (22:00)
[2023-02-18] MEDS: SODIUM CHLORIDE 0.9% 1,000 ML IV SCH (22:27)
[2023-02-18] MEDS: FAMOTIDINE (10MG/ML) 2ML VL IV SCH (22:27)
[2023-02-18] MEDS: InsuLIN REG 1unit/0.01ml Soln (100units/ml) SC SCH (22:28)
[2023-02-18] MEDS: ATORVASTATIN 20 MG TAB PO SCH (22:28)
[2023-02-18] MEDS: ONDANSETRON HCL 4 MG/2 ML VIAL IV PRN (22:29)
[2023-02-18] MEDS: ACCU-CHEK COMFORT CURVE STRIP VI SCH (22:29)
[2023-02-18] MEDS: HYDROmorphone HCL 2 MG/ML VL/or syr IV PRN (22:30)
[2023-02-18] MEDS ORDERED: MORPHINE SULFATE INJ 2 MG/ml SYRG IV PRN (22:45)
[2023-02-18] MEDS ORDERED: NITROGLYCERIN 0.4 MG SL TAB SL PRN (22:45)
[2023-02-18] MEDS: HYDROcodone-ACET 5/325MG TAB PO PRN (23:49)
[2023-02-19] VITALS (7 sets, daily range): BP systolic 101–136; BP diastolic 40–68
[2023-02-19] MEDS ORDERED: GABA-339 PO (02:06)
[2023-02-19] MEDS: CLINDAMYCIN 600MG IV 50 ML IV SCH (06:00)
[2023-02-19] MEDS: ACCU-CHEK COMFORT CURVE STRIP VI SCH ×4 (06:07→21:51)
[2023-02-19 06:16] LABS: Basophils # (auto) 0.1 10 ^3/uL (0-0.2); Eosinophils # (auto) 0.2 10 ^3/uL (0-0.8); Hemoglobin 8.3 g/dL (12.2-16.2); Neutrophils # (auto) 5.6 10 ^3/uL (1.6-8.6); Nucleated Red Blood Cells % 0.1 %
[2023-02-19 06:17] LABS: Basophils % (auto) 1.1 % (0.0-2.0); Eosinophils % (auto) 2.6 % (0.0-7.0); Hematocrit 29.4 % (36.0-46.0); Lymphocytes # (auto) 1.7 10 ^3/uL (0.4-5.4); Lymphocytes % (auto) 19.6 % (10.0-50.0); Mean Corpuscular Hemoglobin 17.3 pg (28.0-32.0); Mean Corpuscular Hgb Conc. 28.2 g/dL (32.0-36.0); Mean Corpuscular Volume 61.5 fL (80.0-100.0); Monocytes % (auto) 11.6 % (0.0-12.0); Neutrophils % (auto) 65.1 % (37.0-80.0); Potassium 4.3 mmol/L (3.5-5.1); Red Blood Cells 4.79 10^6/uL (4.0-5.20); Red Cell Distribution Width 18.4 % (11.8-14.3); White Blood Cell 8.6 10^3/uL (4.4-10.8)
[2023-02-19] MEDS: InsuLIN REG 1unit/0.01ml Soln (100units/ml) SC SCH ×4 (06:22→22:01)
[2023-02-19 06:29] LABS: Albumin 3.4 g/dL (3.4-5.0); Bilirubin, Total 0.4 mg/dL (0.2-1.0); Calcium 8.8 mg/dL (8.5-10.1)
[2023-02-19] MEDS: HYDROcodone-ACET 5/325MG TAB PO PRN (09:20)
[2023-02-19] MEDS ORDERED: VANCOMYCIN PER PHARMACY 0 MG IV SCH (10:15)
[2023-02-19] MEDS: ASPirin 81 mg TAB PO SCH (10:38)
[2023-02-19] MEDS: FAMOTIDINE (10MG/ML) 2ML VL IV SCH ×2 (10:38→21:50)
[2023-02-19] MEDS ORDERED: VANCOMYCIN 1GM/250ML 250 ML IV ONE (10:45)
[2023-02-19] MEDS: HYDROmorphone HCL 2 MG/ML VL/or syr IV PRN ×3 (13:35→21:51)
[2023-02-19] MEDS: SODIUM CHLORIDE 0.9% 1,000 ML IV SCH (13:43)
[2023-02-19] MEDS: CLINDAMYCIN 900MG IV 50 ML IV SCH (21:49)
[2023-02-19] MEDS: ATORVASTATIN 20 MG TAB PO SCH (21:51)
[2023-02-20] MEDS: HYDROcodone-ACET 5/325MG TAB PO PRN ×2 (02:05→13:15)
[2023-02-20] MEDS: ONDANSETRON HCL 4 MG/2 ML VIAL IV PRN ×3 (02:05→15:48)
[2023-02-20 05:00] VITALS: BP 111/47
[2023-02-20] MEDS: HYDROmorphone HCL 2 MG/ML VL/or syr IV PRN ×4 (05:16→22:02)
[2023-02-20] MEDS: SODIUM CHLORIDE 0.9% 1,000 ML IV SCH ×2 (06:20→23:00)
[2023-02-20] MEDS: VANCOMYCIN 1GM/250ML 250 ML IV SCH (06:20)
[2023-02-20] MEDS: ACCU-CHEK COMFORT CURVE STRIP VI SCH ×4 (06:30→22:03)
[2023-02-20] MEDS: InsuLIN REG 1unit/0.01ml Soln (100units/ml) SC SCH ×4 (06:33→22:09)
[2023-02-20 08:30] VITALS: BP 129/51
[2023-02-20 09:00] VITALS: BP 129/51
[2023-02-20] MEDS: FAMOTIDINE (10MG/ML) 2ML VL IV SCH ×2 (09:20→22:03)
[2023-02-20] MEDS: ASPirin 81 mg TAB PO SCH (09:21)
[2023-02-20] MEDS: CLINDAMYCIN 900MG IV 50 ML IV SCH ×2 (09:29→22:03)
[2023-02-20 13:00] VITALS: BP 129/61
[2023-02-20 17:00] VITALS: BP 129/58
[2023-02-20 22:00] VITALS: BP 120/47
[2023-02-20] MEDS: ATORVASTATIN 20 MG TAB PO SCH (22:03)
[2023-02-21] MEDS: VANCOMYCIN 1GM/250ML 250 ML IV SCH (00:15)
[2023-02-21] MEDS: HYDROmorphone HCL 2 MG/ML VL/or syr IV PRN ×3 (02:25→10:03)
[2023-02-21 05:00] VITALS: BP_SYST 122; BP_SYST 145; BP_DIAS 63; BP_DIAS 64
[2023-02-21] MEDS: InsuLIN REG 1unit/0.01ml Soln (100units/ml) SC SCH ×2 (05:58→13:00)
[2023-02-21] MEDS: ACCU-CHEK COMFORT CURVE STRIP VI SCH ×2 (05:58→12:03)
[2023-02-21 09:00] VITALS: BP 139/67
[2023-02-21] MEDS: CLINDAMYCIN 900MG IV 50 ML IV SCH (10:02)
[2023-02-21] MEDS: ASPirin 81 mg TAB PO SCH (10:02)
[2023-02-21] MEDS: FAMOTIDINE (10MG/ML) 2ML VL IV SCH (10:02)
[2023-02-21] MEDS ORDERED: HYDR-4902 PO (12:11)
[2023-02-21] MEDS ORDERED: CLIN300C8 PO (12:11)
[2023-02-21] MEDS: HYDROcodone-ACET 5/325MG TAB PO PRN (12:58)
[2023-02-21 13:00] VITALS: BP 148/62
== END 2023-02-21 15:13 | disposition home or self-care (01) | DRG 603 ==
LOC: ER 15:51 → EDBD 15:51 → OVERFLOW 22:42 → WEST WING 23:46
PROVIDERS: ADMIT Nurse Practitioner Family; ATTEND Family Medicine
DX: L03.115 Cellulitis of right lower limb (principal); E87.1 Hypo-osmolality and hyponatremia; L97.919 Non-pressure chronic ulcer of unspecified part of right lower leg with unspecified severity; L97.929 Non-pressure chronic ulcer of unspecified part of left lower leg with unspecified severity; I87.2 Venous insufficiency (chronic) (peripheral); L03.116 Cellulitis of left lower limb; I11.0 Hypertensive heart disease with heart failure; E11.621 Type 2 diabetes mellitus with foot ulcer; E11.51 Type 2 diabetes mellitus with diabetic peripheral angiopathy without gangrene; D50.9 Iron deficiency anemia, unspecified; K21.9 Gastro-esophageal reflux disease without esophagitis; I50.9 Heart failure, unspecified; E78.5 Hyperlipidemia, unspecified; F41.9 Anxiety disorder, unspecified; F32.A Depression, unspecified; E11.65 Type 2 diabetes mellitus with hyperglycemia; E66.9 Obesity, unspecified; Z88.5 Allergy status to narcotic agent; Z90.710 Acquired absence of both cervix and uterus; Z83.3 Family history of diabetes mellitus; Z80.9 Family history of malignant neoplasm, unspecified; Z82.49 Family history of ischemic heart disease and other diseases of the circulatory system; Z68.33 Body mass index [BMI] 33.0-33.9, adult; Z79.4 Long term (current) use of insulin
CPT/HCPCS: 36415; 80053; 80061; 82565; 82962; 83036; 85025; 85652; 87040; 87077; 87186; 87205; 93005; 93970; 96365; 96366; 96375; G0378; J1815; J2405; J3490

== ENCOUNTER 2023-03-22 09:00 | Emergency (ER) | payer OTHER, MEDICAID ==
[~2023-03-22] VITALS: Ht 149.9 cm; Wt 68.2 kg
[~2023-03-22 09:00] MED LIST changes: -BUPR150T18 PO; +CLIN300C70 PO; -CLON0.5T10 PO; -ESCI-34 PO; +GABA-1250 PO; +GABA-339 PO; -GABA300C10 PO; -GLIM-5 PO; +HYDR-4902 PO; -LEVO-28 PO; +LEVO500T91 PO; -PANT1INJ3 IV
[2023-03-22 11:20] LABS: Basophils # (auto) 0.1 10 ^3/uL (0-0.2); Eosinophils # (auto) 0.2 10 ^3/uL (0-0.8); Eosinophils % (auto) 2.1 % (0.0-7.0); Monocytes # (auto) 0.8 10 ^3/uL (0-1.3); White Blood Cell 8.2 10^3/uL (4.4-10.8)
[2023-03-22 11:23] LABS: Hematocrit 35.5 % (36.0-46.0); Hemoglobin 10.4 g/dL (12.2-16.2); Lymphocytes # (auto) 1.7 10 ^3/uL (0.4-5.4); Lymphocytes % (auto) 20.3 % (10.0-50.0); Mean Corpuscular Hemoglobin 18.7 pg (28.0-32.0); Mean Corpuscular Hgb Conc. 29.2 g/dL (32.0-36.0); Monocytes % (auto) 9.9 % (0.0-12.0); Neutrophils # (auto) 5.4 10 ^3/uL (1.6-8.6); Neutrophils % (auto) 66.7 % (37.0-80.0); Nucleated Red Blood Cells % 0.2 %; Red Blood Cells 5.55 10^6/uL (4.0-5.20)
[2023-03-22 11:26] LABS: Red Cell Distribution Width 21.5 % (11.8-14.3)
[2023-03-22 11:33] LABS: Albumin 4.1 g/dL (3.4-5.0); CRP High Sensitivity 0.3 mg/dL (< 0.3)
[2023-03-22 11:46] LABS: BUN/Creatinine Ratio 24.4 (10.0-20.0); Bilirubin, Total 0.5 mg/dL (0.2-1.0); Total Protein 8.4 g/dL (6.4-8.2)
[2023-03-22 12:04] LABS: Potassium 5.8 mmol/L (3.5-5.1)
[2023-03-22] MEDS ORDERED: ALBUTEROL SULF 2.5 MG/0.5ML(0.5%) NEB SOLN NEB ONE (12:15)
[2023-03-22] MEDS ORDERED: FUROSEMIDE 20 MG/2 ML VIAL IV ONE (12:15)
[2023-03-22] MEDS ORDERED: SODIUM ZIRCONIUM CYCL 10 GM PAK PO ONE (12:15)
[2023-03-22] MEDS ORDERED: CALCIUM GLUC 1,000mg/50ml-NS 50 ML IV ONE (12:15)
[2023-03-22] MEDS ORDERED: SODIUM BICARBONATE 8.4% INJ 50ML SYRINGE IV ONE (12:15)
[2023-03-22] MEDS ORDERED: HYDROcodone-ACET 5/325MG TAB PO ONE (15:45)
[2023-03-22] MEDS ORDERED: SODIUM CHLORIDE 0.9% 500 ML IV ONE (16:30)
[2023-03-22] MEDS ORDERED: CLIN150C PO (18:40)
[2023-03-22] MEDS ORDERED: HYDR1TAB97 PO (18:41)
[2023-03-22 19:45] VITALS: BP 131/47
== END 2023-03-22 20:00 | disposition home or self-care (01) ==
LOC: EDBD 09:00 → ER 09:00
DX: I73.9 Peripheral vascular disease, unspecified (principal); E87.5 Hyperkalemia; I11.0 Hypertensive heart disease with heart failure; I50.9 Heart failure, unspecified; E11.9 Type 2 diabetes mellitus without complications; K21.9 Gastro-esophageal reflux disease without esophagitis; E78.5 Hyperlipidemia, unspecified; F41.9 Anxiety disorder, unspecified; F32.9 Major depressive disorder, single episode, unspecified; Z87.440 Personal history of urinary (tract) infections; Z98.890 Other specified postprocedural states; Z90.710 Acquired absence of both cervix and uterus; Z86.2 Personal history of diseases of the blood and blood-forming organs and certain disorders involving the immune mechanism; Z88.5 Allergy status to narcotic agent
CPT/HCPCS: 36415; 71045; 80053; 83605; 83880; 84132; 84484; 85025; 85652; 86141; 87040; 93970; 94640; 96365; 96375; 99285; J0610; J1940; J7030; J7040; 96361

== ENCOUNTER 2023-04-03 13:13 | Emergency (ER) | payer OTHER, MEDICAID ==
[~2023-04-03] VITALS: Ht 149.9 cm; Wt 68.1 kg
[~2023-04-03 13:13] MED LIST changes: +CLIN150C PO; +HYDR1TAB97 PO
[2023-04-03 15:28] LABS: Albumin 3.8 g/dL (3.4-5.0); Calcium 8.9 mg/dL (8.5-10.1); Potassium 4.4 mmol/L (3.5-5.1)
[2023-04-03 15:31] LABS: BUN/Creatinine Ratio 18.7 (10.0-20.0); Bilirubin, Total 0.4 mg/dL (0.2-1.0)
[2023-04-03 18:04] LABS: Basophils # (auto) 0.1 10 ^3/uL (0-0.2); Eosinophils # (auto) 0.1 10 ^3/uL (0-0.8); Eosinophils % (auto) 2.3 % (0.0-7.0); Hematocrit 34.2 % (36.0-46.0); Hemoglobin 10.2 g/dL (12.2-16.2); Lymphocytes # (auto) 0.9 10 ^3/uL (0.4-5.4); Lymphocytes % (auto) 15.7 % (10.0-50.0); Mean Corpuscular Hemoglobin 19.2 pg (28.0-32.0); Mean Corpuscular Hgb Conc. 29.9 g/dL (32.0-36.0); Mean Corpuscular Volume 64.2 fL (80.0-100.0); Monocytes # (auto) 0.6 10 ^3/uL (0-1.3); Monocytes % (auto) 10.7 % (0.0-12.0); Neutrophils % (auto) 70.3 % (37.0-80.0); Nucleated Red Blood Cells % 0.1 %; Red Blood Cells 5.33 10^6/uL (4.0-5.20); White Blood Cell 5.7 10^3/uL (4.4-10.8)
[2023-04-03 18:39] LABS: Red Cell Distribution Width 23.8 % (11.8-14.3)
[2023-04-03 18:42] VITALS: BP 154/56
[2023-04-03 20:45] LABS: Urine Bacteria NONE SEEN /hpf (None Seen); Urine Blood Negative /uL (Negative); Urine Hyaline Cast FEW /lpf (0 - 2); Urine Specific Gravity 1.016 (1.001-1.035); Urine WBC 2 /hpf (0 - 5)
== END 2023-04-03 20:33 | disposition left against medical advice (07) ==
LOC: ER 13:13 → EDBD 13:13 → ER 20:33
DX: L03.116 Cellulitis of left lower limb (principal); L03.115 Cellulitis of right lower limb; E11.9 Type 2 diabetes mellitus without complications; K21.9 Gastro-esophageal reflux disease without esophagitis; E78.5 Hyperlipidemia, unspecified; I10 Essential (primary) hypertension; R06.02 Shortness of breath; Z90.710 Acquired absence of both cervix and uterus; Z88.6 Allergy status to analgesic agent; Z88.1 Allergy status to other antibiotic agents
CPT/HCPCS: 36415; 71045; 80053; 81001; 83605; 83880; 84484; 85025; 87040